=== PATIENT | male | born 1960 | race Caucasian/White ===

== ENCOUNTER 2024-03-19 12:58 | Emergency (ER) | payer BC, SELFPAY ==
[2024-03-19 13:07] VITALS: BP 162/99
--- NOTE | 2024-03-19 15:53 | ED.GENMED ---
History of Present Illness
General
Chief Complaint: Skin Problem
Source: patient
Exam Limitations: none
Time Seen by Provider: 03/19/24 15:28
Nursing documentation reviewed up to this point in time: agreed with
History of Present Illness
History of Present Illness:
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
here with L chest wall abscess x 4 days or so, redness is slihgly spreading, with pain radiating into his axilla and around his chest wall
no other bumps/vesicles
similar to previous abscesses
he has apper work from [facility] from february for an abscess in axilla that responded well to bactrim
no systemic sxs of fever, chills, vomiting, nauesa, fatigue
no exertional cp, sob,
no chest pain currently
he did have some improvement with warm compresses, small amount of pus drainage
Past History
Past History
ED Past Medical History: HTN, Hypercholesterolemia and [place]; Negative IDDM or NIDDM
Social History
Drug: None
Personal:
Living: with family
Employment: Employed
Family History
Family History: Other (Noncontributory)
Review of Systems
Review of Systems
Allergies reviewed?: Yes
All Other Systems: Not applicable
Phy Exam
Physical Exam
Physical Exam:
GENERAL: Alert , in no apparent distress
CARDIAC: Regular rate and rhythm .
chest wall: skin pt has a 2x3 cm area induration small pustule centrally left lateral chest with a 6 x 4 cm surrounding erythema
minimally tender
LUNGS: Clear breath sounds bilaterally, no acute respiratory distress, no wheezes/rales/rhonchi
NEUROLOGICAL: Alert and oriented, no focal neuro deficits
SKIN: Warm and dry, skin intact. skin rash
PSYCH: Normal and appropriate interaction.
Course
Orders/Labs/Results
Orders:
Orders
03/19/24 15:59
Clindamycin HCl [Cleocin] 300 mg PO NOW STA
03/19/24 16:26
Wound Culture [Wound/Abscess/Other Culture] Urgent
YARELI Source: Abscess
Specimen Description:
Date Specimen was Collected: 03/19/24
Time Specimen was Collected: 16:23
Vital Signs
Initial and Last Documented VS:
Initial Vital Signs
Temp Pulse Resp BP Pulse Ox
98.5 F 92 16 162/99 97
03/19/24 13:07 03/19/24 13:07 03/19/24 13:07 03/19/24 13:07 03/19/24 13:07
Last Documented Vital Signs
Temp Pulse Resp BP Pulse Ox
98.5 F 92 16 162/99 97
03/19/24 13:07 03/19/24 13:07 03/19/24 13:07 03/19/24 13:07 03/19/24 13:07
Procedures
Incision/Drainage/Joint Aspiration
Left Lateral Chest:
Anethesia: 1% Lidocaine
Preparation: cleaned with Betadine
Type of procedure: incise
Nature of site: abscess
Description of abscess: less than 3cm
How much fluid was obtained?: scant amount
Fluid description: bloody
Treatment: left open for drainage
MDM/Problems Addressed
Differential Diagnosis Includes:
abscess, cellulitis
MDM/Problems Addressed:
63 y/o M with ho abscesses int he past
no previous cultures
L chest wall abscess with small area of redness around it for a few days
small drainge after warm compresses
no systemic symptoms
no chest pain/sob
pt has an indurated area to left anterio rchest wall lateral, around 6th rib regoin in anterior axillary line with small area of redness surrounding
no drainage when iexpress
will culture
abx (clinda because bactrim interacts with lisinopril)
I&D completed
*Critical Care Note
Total Time (30-74mins, 75-104mins- exclusive of procedures): Not Applicable
ED Attending Note
-
Portions of this chart may have been created with voice recognition software.� Occasional wrong word or��sound alike� substitutions may have occurred due to the inherent limitations of voice recognition software.
Discharge Plan
Departure
Patient Disposition: Home (Routine Discharge)
Date of Disposition: 03/19/24
Time of Disposition: 16:20
Patient with high blood pressure during this ER visit?: Yes
Condition: Fair
Discharge Problem:
Abscess of chest wall
Instructions: Abscess Incision and Drainage (DC), BLOOD PRESSURE
Prescriptions:
New
clindamycin HCl 300 mg capsule
300 mg PO TID Qty: 30 0RF
No Action
atorvastatin 80 MG tablet
80 mg PO QPM Qty: 90 10RF
losartan 25 MG tablet
25 mg PO DAILY Qty: 90 10RF
aspirin 81 MG tablet,chewable
81 mg PO DAILY 0RF
metoprolol tartrate 12.5 MG tablet
12.5 mg PO BID Qty: 180 10RF
ticagrelor [Brilinta] 90 MG tablet
90 mg PO BID Qty: 60 12RF
Referrals:
NONE,* [Family Provider] -
Activity Restrictions/Additional Instructions:
WARM COMPRESSES OFF AN DON FOR THE NEXT SEVERAL DAYS
WATCH THE AREA AROUND IT AND MAKE SURE THE REDNESS IS NOT STREAKING OUTSIDE MUCH
IF IT IS GROWING, YOU WILL NEED TO RETURN
CLIDAMYCIN 1 TAB 3 TIMES ADAY FOR 10 DAYS
RETURN FOR: SEVERE PAIN, FEVER, CHILLS, WORSENING REDNESS, WORSENING SWELLING OR ANYCONCERNS.
Interventions
Interventions:
*Risk Screen - Suicide Last Done: 03/19/24 13:07
*General Assessment Last Done: 03/19/24 13:07
*Neglect/Abuse Screening Last Done: 03/19/24 13:07
ED- Fall Risk Assessment Last Done: 03/19/24 15:54
*ED COVID-19 Vaccine History Last Done: 03/19/24 13:07
*Nursing Disposition Last Done: 03/19/24 16:32
ED-Skin Assessment Last Done: 03/19/24 15:54
Discharge Date and Time
Discharge Date/Time: 03/19/24 16:32
Print Language: [place] CITIZ[place]
[2024-03-19] MEDS: CLEOCIN 300 MG PO (16:27)
== END 2024-03-19 16:32 | disposition home or self-care (01) ==
LOC: EMR 12:58
PROVIDERS: EMERGENCY PHYSICIAN Student in an Organized Health Care Education/Training Program
DX: L02.213 Cutaneous abscess of chest wall (principal); I10 Essential (primary) hypertension; E78.00 Pure hypercholesterolemia, unspecified; I25.10 Atherosclerotic heart disease of native coronary artery without angina pectoris; I25.2 Old myocardial infarction; Z95.5 Presence of coronary angioplasty implant and graft; Z79.82 Long term (current) use of aspirin
CPT/HCPCS: 10060; 99283; 87070; 87147; 87186; 87205

== ENCOUNTER → 2024-08-10 07:46 | Outpatient (REF) | payer BC, SELFPAY ==
[2024-08-10 09:04] LABS: ALT (SGPT) 32 U/L (0-50); AST (SGOT) 26 U/L (17-59); Albumin 4.9 g/dl (3.5-5.0); Alkaline Phosphatase 56 U/L (38-126); Direct Bilirubin 0.2 mg/dl (0.0-0.4); HDL Cholesterol 67 mg/dl; LDL Cholesterol, Calculated 104 mg/dl; Total Bilirubin 0.5 mg/dl (0.2-1.3); Total Cholesterol 192 mg/dl (50-199); Total Protein 7.5 g/dl (6.3-8.2); Triglyceride 107 mg/dl (10-149); Very Low Density Lipoprotein 21 mg/dl (0-30)
== END ==
LOC: REG 07:46
PROVIDERS: ATTENDING PHYSICIAN Internal Medicine Cardiovascular Disease
DX: E78.00 Pure hypercholesterolemia, unspecified (principal)
CPT/HCPCS: 36415; 80061; 80076

== ENCOUNTER → 2024-10-28 09:29 | Outpatient (REF) | payer BC, SELFPAY ==
[2024-10-28 11:17] LABS: ALT (SGPT) 34 U/L (0-50); AST (SGOT) 29 U/L (17-59); Albumin 5.1 g/dl (3.5-5.0); Alkaline Phosphatase 67 U/L (38-126); Direct Bilirubin 0.1 mg/dl (0.0-0.4); HDL Cholesterol 51 mg/dl; LDL Cholesterol, Calculated 75 mg/dl; Total Bilirubin 0.8 mg/dl (0.2-1.3); Total Cholesterol 144 mg/dl (50-199); Total Protein 7.5 g/dl (6.3-8.2); Triglyceride 91 mg/dl (10-149); Very Low Density Lipoprotein 18 mg/dl (0-30)
== END ==
LOC: REG 09:29
PROVIDERS: ATTENDING PHYSICIAN Internal Medicine Cardiovascular Disease
DX: E78.00 Pure hypercholesterolemia, unspecified (principal)
CPT/HCPCS: 36415; 80061; 80076